=== PATIENT | male | born 1935 | race Caucasian/White ===

== ENCOUNTER 2017-02-12 07:21 | Day surgery (SDC) | payer MEDICARE, BC ==
[~2017-02-12 07:21] MED LIST: ACETAMINOPHEN 325 MG TABLET PO PRN; ACETYLCHOLINE CHLORIDE 20 DROP KIT IO PRN; BUPIVACAINE HCL/PF 30 ML VIAL IJ PRN; CYCLOPENTOLATE HCL 20 DROP BTL LEFTEYE PRN; DEXTROSE 5%-0.5 NORMAL SALINE 1,000 ML IV PRN; EPINEPHrine 1 MG/ML AMPUL IO PRN; HYALURONATE SODIUM 0.4 ML DISP.SYRIN IO PRN; HYALURONATE SODIUM 0.85 ML DISP.SYRIN IO PRN; LIDOCAINE HCL/PF 200 MG/5 ML AMPUL TP PRN; LIDOCAINE HCL/PF 5 ML VIAL IO PRN; NORMAL SALINE 3 ML BOX IV PRN; TETRACAINE HCL 150 DROP BTL OP PRN
--- OUTSIDE RECORDS SUMMARY | 2017-02-12 07:27 | XMS REPORT | Continuity of Care Document ---
:1935 Author Organization [facility] ([facility]) Address [address] [place] [address] Phone [phone] Care Team Providers Name Role Phone Gen Ureña Primary Care Provider [phone] Source Comments This disclosure is being made pursuant to the Care Everywhere program, applicable federal and state laws, and may not contain all informaitonavailable regarding this patient.[facility] ([facility]) Active Allergies and Adverse Reactions No Known Allergies Current Medications Prescription Sig. Disp. Refills Start Date End Date Status Diphenhydramine-Acetam take 2 Tabs by Active inophen (TYLENOL PM mouth at bedtime. EXTRA STRENGTH) 25-500 mg Tab aspirin 81 mg tablet Take 1 Tab by 60 Tab 11 08/28/2012 Active mouth 2 times daily. Indications: MYOCARDIAL INFARCTION ONE TOUCH TEST Strp by In Vitro route 50 Strip 12 09/02/2012 Active test strips daily. PRN Indications: TYPE 2 DIABETES MELLITUS SUPPLY blood glucose Use as direct by 1 Each 0 09/02/2012 Active (ONE TOUCH BASIC physician. SYSTEM) meter Indications: TYPE 2 DIABETES MELLITUS ergocalciferol Take 1 capsule 12 capsule 3 03/08/2016 Active (VITAMIN D2) 50,000 (50,000 Units unit capsule total) by mouth every week. atenolol 25 mg tablet Take 0.5 tablets 30 tablet 5 06/09/2016 Active (12.5 mg total) by mouth daily. calcitriol 0.25 mcg Take 1 capsule 30 capsule 11 07/20/2016 Active capsule (0.25 mcg total) by mouth daily. pioglitazone 45 mg Take 1 tablet (45 30 tablet 11 08/08/2016 Active tablet mg total) by mouth daily. furosemide 20 mg Take 2 tablets 60 tablet 6 08/25/2016 Active tablet (40 mg total) by mouth as needed. docusate 100 mg Take 100 mg by Active capsule mouth daily. As needed atorvastatin (LIPITOR) Take 1 tablet (40 90 tablet 4 10/31/2016 Active 40 mg tablet mg total) by mouth daily. Active Problems Problem Noted Date Pre-transplant evaluation for kidney transplant 09/26/2016 Dental caries 08/14/2016 Secondary hyperparathyroidism 06/25/2014 Edema 06/25/2014 Pyuria 06/25/2014 Proteinuria 06/25/2014 Diabetes 05/20/2014 Hypertension 05/22/2012 CAD (coronary artery disease) 05/22/2012 Chronic kidney disease, stage IV (severe) 05/13/2008 Other specified disorder of kidney and ureter 12/17/2006 Malignant neoplasm of kidney, except pelvis 11/30/2006 Unspecified disorder of kidney and ureter 11/27/2006 Most Recent Encounters Date Type Specialty Providers Description 01/30/2017 Office Visit Meir Vargas - Primary Gen Ureña Dx: Cataracts, A, DO bilateral (Primary Dx) 01/16/2017 Office Visit Robert Villalba Chief Comp: Patient E, DMD Reported Reason For Visit 01/08/2017 Office Visit Brenton Hicks DDS Chief Comp: Patient Robert Cook Reported Reason For E, DMD Visit 12/25/2016 Office Visit Brenton Hicks DDS Chief Comp: Patient Robert Cook Reported Reason For E, DMD Visit 12/25/2016 Office Visit Brenton Hicks DDS Chief Comp: Patient Gela Greene Reported Reason For D Visit 12/12/2016 Office Visit Brenton Hicks DDS Chief Comp: Patient Robert Cook Reported Reason For E, DMD Visit 12/06/2016 Office Visit Pathology Mignon Coats, Dx: Chronic kidney MD disease, stage IV Lab Services, Psc (severe) 12/06/2016 Hospital Encounter Pediatric Mignon Coats, Dx: Chronic kidney Nephrology MD disease, stage IV (severe) (Primary Dx) Immunizations Name Dates Previously Given Next Due Influenza 09/02/2009 Influenza, PF 09/03/2013,08/28/2012,10/25/2011 Influenza, high dose 09/06/2016 Influenza, quadrivalent PF 07/14/2015,09/09/2014 Influenza, unspecified 08/27/2008,09/12/2007,03/05/2007 Pneumococcal, unspecified 09/12/2007 Social History Tobacco Use Types Packs/Day Years Used Date Former Smoker Cigarettes 1 Quit: 05/03/1988 Smokeless Tobacco: Never Used Tobacco Cessation:Counseling Given: Yes Comments: Alcohol Use Drinks/Week oz/Week Comments No Last Filed Vital Signs Vital Sign Reading Time Taken Blood Pressure 104/38 01/30/2017 3:12 PM CDT Pulse 56 01/30/2017 3:12 PM CDT Temperature 36.4 C (97.5 F) 01/30/2017 3:12 PM CDT Respiratory Rate 24 12/06/2016 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 Height 1.635 m (5' 4.37") 12/06/2016 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 Weight 87.454 kg (192 lb 12.8 oz) 01/30/2017 3:12 PM CDT Body Mass Index 32.71 01/30/2017 3:12 PM CDT Oxygen Saturation - - Plan of Care Date Type Specialty Providers Description 03/07/2017 Appointment Pediatric Nephrology Mignon Coats MD Chief Comp: Patient [address] [place] [address] Visit [phone] (Fax) 06/25/2017 Appointment Dentistry Gela Greene Chief Comp: Patient [address] [place] [address] Visit [phone] (Fax) Health Maintenance Due Date Last Done Comments Hepatitis B Vaccine (1 of 3 - 1935 Primary Series) Tdap Vaccine 1946 DIABETIC: Microalbumin 1955 Td Vaccine 1955 Colonoscopy 1987 Zoster Vaccine 1997 Pneumococcal Vaccine (1 of 2 2002 - PCV13) DIABETIC: Foot Exam 02/15/2014 DIABETIC: Retinal Eye Exam 02/15/2014 DIABETIC: Hemoglobin A1C 03/10/2016 09/09/2015, Additional history exists 09/09/2015, 09/07/2014 DIABETIC: Cholesterol 09/06/2017 09/06/2016, Additional history exists 03/08/2016, 09/09/2015 Diabetic: Hdl 09/06/2017 09/06/2016, Additional history exists 03/08/2016, 09/09/2015 Diabetic: Ldl 09/06/2017 09/06/2016, Additional history exists 03/08/2016, 09/09/2015 DIABETIC: Triglycerides 09/06/2017 09/06/2016, Additional history exists 03/08/2016, 09/09/2015 Influenza Vaccine: Seasonal Completed 09/06/2016, Additional history exists 07/14/2015, 09/09/2014 Results from Last 3 Months DIFFERENTIAL (12/06/2016 9:47 AM) Component Value Range % Neutrophils-Auto Diff 55.0 % Neutrophils-Auto Diff 3950 6427-0193 /MM3 % Lymphocytes-Auto Diff 29.2 % Lymphocytes-Auto Diff 2100 875-3300 /MM3 % Monocytes-Auto Diff 11.5 % Monocytes-Auto Diff 830 130-860 /MM3 % Eosinophils-Auto Diff 3.3 % Eosinophils-Auto Diff 240 40-390 /MM3 % Basophils 0.4 % Basophils-Auto Diff 30 10-136 /MM3 % Immature Granulocytes-Auto Diff 0.6 % Immature Granulocytes-Auto Diff 40 /MM3 Specimen Whole Blood CBC (COMPLETE BLOOD COUNT) (12/06/2016 9:47 AM) Component Value Range WBC Count 7.2 3.7-10.5 K/MM3 RBC Count 3.26(L) 4.50-6.20 M/MM3 Hemoglobin 10.6(L) 13.2-17.7 g/dL Hematocrit 34(L) 40-52 % MCV (Mean Corpuscular Volume) 104(H) 82-99 FL MCH (Mean Corpuscular Hemoglobin) 33 25-35 PG MCHC (Mean Corpuscular Hemoglobin Concentration) 31(L) 32-36 % Platelet Count 198 150-400 K/MM3 MPV (Mean Platelet Volume) 11.6 9.4-12.3 FL RBC Dist Width-STD 55.9(H) 35.1-43.9 FL RBC Distrib Width 14.6(H) 9.0-14.5 % Nucleated RBC 0 /100 WBC Specimen Whole Blood URIC ACID (12/06/2016 9:47 AM) Component Value Range Uric Acid 6.2 3.4-7.0 mg/dL Specimen Blood CBC WITH DIFFERENTIAL (12/06/2016 9:47 AM) Specimen Whole Blood Narrative The following orders were created for panel order CBC WITH DIFFERENTIAL. Procedure Abnormality Status --------- ------ CBC (COMPLETE BLOOD COUNT)[[id number]] AbnormalFinal result DIFFERENTIAL[[id number]] Final result Please view results for these tests on the individual orders. VITAMIN D, 25-HYDROXY (12/06/2016 9:47 AM) Component Value Range Vitamin D, 25-OH 28Comment: 20-80 ng/mL This assay accurately quantifies the sum of 25-hydroxyvitamin D3 and 25- hydroxyvitamin D2. Endocrine Society, [place] of [employer] (IOM), and World Health Organization (WHO) guidelines designate 25-h ydroxyvitamin D plasma concentrations below 20 ng/mL as deficient, based on increased frequency of adverse outcomes (e.g., osteoporotic fractures). 25-Hydroxyvitamin D reference ranges are a controversial topic, with some authorities suggesting optimal concentrations should be 30 ng/mL or higher based on correlations of 25-hydroxyvitamin D plasma concentrations with physiological parameters such as parathyroid hormone or calcium concentrations. However, optimal 25-hydroxyvitamin D concentrations greater than 20 ng/mL may be considered for specific disease conditions. Vitamin D toxicity is uncommon but may be seen at 25-hydroxyvitamin D concentrations greater than 150 ng/mL. Specimen Blood PARATHYROID HORMONE (12/06/2016 9:47 AM) Component Value Range PTH 193.6(H) 10.0-65.0 pg/mL Specimen Blood PHOSPHORUS (12/06/2016 9:47 AM) Component Value Range Phosphorus 3.4Comment:New reference range installed 08/24/15. 2.5-4.5 mg/dL Specimen Blood MAGNESIUM (12/06/2016 9:47 AM) Component Value Range Magnesium 2.2 1.5-2.9 mg/dL Specimen Blood CALCIUM (12/06/2016 9:47 AM) Component Value Range Calcium 8.9 8.5-10.5 mg/dL Specimen Blood ALBUMIN (12/06/2016 9:47 AM) Component Value Range Albumin 3.5 3.4-4.8 g/dL Specimen Blood CHEM 7 PANEL (12/06/2016 9:47 AM) Component Value Range Sodium 142 135-145 mEq/L Chloride 110(H) 95-107 mEq/L Potassium 4.8 3.5-5.0 mEq/L CO2 21(L) 22-29 mEq/L BUN 30(H) 10-20 mg/dL Creatinine 3.2(H)Comment: 0.6-1.2 mg/dL Creatinine switched to enzymatic method on 03/21/2011.GFR equation switched to IDMS-traceable MDRD equation on 03/21/2011. Calculated GFR values are not valid in clinical settings where serum creatinine is changing. Glucose 88Comment: 65-99 mg/dL The Expert Committee on the Diagnosis and Classification of Diabetes has defined impaired fasting glucose as greater than or equal to 100 mg/dL but less than 126 mg/dL.(Diabetes Care 28 (Suppl 1)S41,2005) Anion Gap 11 8-18 mEq/L Calculated GFR 19(L) >60 mL/min/1.73 m2 Specimen Blood URINE MICROSCOPIC (12/06/2016 7:30 AM) Component Value Range White Blood Cells, Urine 64(H) 0-5 /HPF Red Blood Cells, Urine 4(H) 0-2 /HPF Bacteria, Urine Rare(A) /HPF Squamous Epithelial Cells, Urine 8 <=10 /LPF Mucous-Urine Rare None, Rare Specimen Urine URINALYSIS (12/06/2016 7:30 AM) Component Value Range Color, Urine Yellow Straw, Pale Yellow, Yellow, Clear, None Clarity, Urine Clear Clear pH, Urine 5.0 <9.0 Glucose, Urine 1+(A) Negative Blood, Urine 1+(A) Negative Ketones, Urine Negative Negative Protein, Urine Negative Negative Urobilinogen, Urine Normal Normal Bilirubin, Urine Negative Negative Leukocyte Esterase, Urine 3+(A) Negative Nitrite, Urine Negative Negative Spec [place], Urine 1.015 1.000-1.030 Specimen Urine PROTEIN-URINE,RANDOM (12/06/2016 7:30 AM) Component Value Range Total Protein, Urine, Random 24 mg/dL Protein/Creatinine Ratio 0.28(H) <=0.20 Specimen Urine CREATININE-URINE, RANDOM (12/06/2016 7:30 AM) Component Value Range Creatinine, Urine, Random 84.8 mg/dL Specimen Urine
[2017-02-12] MEDS: PHENYLEPHRINE HCL 50 DROP BTL LEFTEYE PRN ×3 (07:45→08:12)
[2017-02-12] MEDS: TROPICAMIDE 150 DROP BTL LEFTEYE PRN ×3 (07:45→08:12)
[2017-02-12] MEDS ORDERED: RINGERS SOLUTION,LACTATED 1,000 ML IV ONE (08:03)
[2017-02-12 10:13] VITALS: BP 112/45
== END 2017-02-12 07:22 | disposition home or self-care (01) ==
LOC: AMB 07:21
PROVIDERS: ATTEND Ophthalmology
PROC: 08RK3JZ Replacement of Left Lens with Synthetic Substitute, Percutaneous Approach (ICD-10-PCS; principal; 2017-02-12 08:45)
DX: H26.9 Unspecified cataract (principal); I12.9 Hypertensive chronic kidney disease with stage 1 through stage 4 chronic kidney disease, or unspecified chronic kidney disease; N18.4 Chronic kidney disease, stage 4 (severe); E11.22 Type 2 diabetes mellitus with diabetic chronic kidney disease; N25.81 Secondary hyperparathyroidism of renal origin; I25.10 Atherosclerotic heart disease of native coronary artery without angina pectoris; Z68.32 Body mass index [BMI] 32.0-32.9, adult

== ENCOUNTER 2017-02-26 10:40 | Day surgery (SDC) | payer MEDICARE, BC ==
[~2017-02-26 10:40] MED LIST changes: -CYCLOPENTOLATE HCL 20 DROP BTL LEFTEYE PRN; +CYCLOPENTOLATE HCL 20 DROP BTL RIGHTEYE PRN
--- OUTSIDE RECORDS SUMMARY | 2017-02-26 10:45 | XMS REPORT | Continuity of Care Document ---
:1935 Author Organization [facility] ([facility]) Address [address] [place] [address] Phone [phone] Care Team Providers Name Role Phone Gen Ureña Primary Care Provider [phone] Source Comments This disclosure is being made pursuant to the Care Everywhere program, applicable federal and state laws, and may not contain all informaitonavailable regarding this patient.[facility] (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 Height 1.635 m (5' 4.37") 12/06/2016 10:07 AM PUBLIC RELATIONS INTERN Weight 87.454 kg (192 lb 12.8 oz) 01/30/2017 3:12 PM CDT Body Mass Index 32.71 01/30/2017 3:12 PM CDT Oxygen Saturation - - Plan of Care Date Type Specialty Providers Description 03/07/2017 Appointment Pediatric Nephrology Mignon Coats MD Chief Comp: Patient [address] [place] [address] Visit [phone] (Fax) 06/25/2017 Appointment Dentistry Gela Greene Chief Comp: Patient [address] [place] [address] Visit [phone] (Fax) Health Maintenance Due Date Last Done [...] Neutrophils-Auto Diff 55.0 % Neutrophils-Auto Diff 3950 1314-1703 /MM3 % Lymphocytes-Auto Diff 29.2 % Lymphocytes-Auto [...] Abnormality Status --------- ------ CBC (COMPLETE BLOOD COUNT)[[id number]] AbnormalFinal result DIFFERENTIAL[[id number]] Final result Please view results for these tests on the individual orders. VITAMIN D, 25-HYDROXY (12/06/2016 9:47 AM) Component Value Range Vitamin D, 25-OH 28Comment: 20-80 ng/mL This assay accurately quantifies the sum of 25-hydroxyvitamin D3 and 25- hydroxyvitamin D2. Endocrine Society, [place] of [employer] (IOM), and World Health Organization [...] 3+(A) Negative Nitrite, Urine Negative Negative Spec [place], Urine 1.015 1.000-1.030 Specimen Urine PROTEIN-URINE,RANDOM (12/06/2016 7:30 AM) Component Value Range Total Protein, Urine, Random 24 mg/dL Protein/Creatinine Ratio 0.28(H) <=0.20 Specimen Urine CREATININE-URINE, RANDOM (12/06/2016 7:30 AM) Component Value Range Creatinine, Urine, Random 84.8 mg/dL Specimen Urine
[2017-02-26] MEDS: PHENYLEPHRINE HCL 50 DROP BTL RIGHTEYE PRN ×3 (11:35→12:09)
[2017-02-26] MEDS: TROPICAMIDE 150 DROP BTL RIGHTEYE PRN ×3 (11:35→12:09)
[2017-02-26] MEDS ORDERED: RINGERS SOLUTION,LACTATED 1,000 ML IV ONE (11:40)
[2017-02-26 14:07] VITALS: BP 129/61
== END 2017-02-26 10:41 | disposition home or self-care (01) ==
LOC: AMB 10:40
PROVIDERS: ATTEND Ophthalmology
PROC: 08RJ3JZ Replacement of Right Lens with Synthetic Substitute, Percutaneous Approach (ICD-10-PCS; principal; 2017-02-26 12:30)
DX: H26.9 Unspecified cataract (principal); I12.9 Hypertensive chronic kidney disease with stage 1 through stage 4 chronic kidney disease, or unspecified chronic kidney disease; N18.4 Chronic kidney disease, stage 4 (severe); E13.22 Other specified diabetes mellitus with diabetic chronic kidney disease; I25.10 Atherosclerotic heart disease of native coronary artery without angina pectoris; N25.81 Secondary hyperparathyroidism of renal origin